=== PATIENT | female | born 1970 | race Caucasian/White ===

== ENCOUNTER → 2016-11-28 | Outpatient (CLI) | payer MEDICAID ==
--- NOTE | 2016-11-28 20:53 | WWHP ---
DATE OF SERVICE: 11/28/2016. CHIEF COMPLAINT: Patient is here for her routine gynecologic exam and mammogram. HPI: This is a 46-year-old G3, P2-0-1-2 with an LMP of 11/07/2016. Her is status post vasectomy. She is complaining of some occasional pressure in the perineal area. She describes it as a bulging type feeling but nothing seems to come through the introitus. She states that occasionally she has had the sensation like there is a small amount of gas coming from the vagina. She denies any stool from the vagina. She states her periods are regular every month. Her last pelvic exam was about 3 years ago. PAST MEDICAL HISTORY: Unremarkable. She currently does not have a primary care physician but thinks she may see Dr. Jones in the future. MEDICATIONS: Vitamin D 3000 units daily. ALLERGIES: No known drug allergies. PAST SURGICAL HISTORY: D&C by myself in the past. Past OB history: One spontaneous followed by 2 pregnancies with vaginal deliveries. Past ELECTRICAL INSTRUMENT [employer] history: She has no history of STDs. SOCIAL HISTORY: She denies tobacco and drug use and has about 1 to 2 alcoholic drinks per year. 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 FAMILY HISTORY: Mother has rectal cancer, maternal aunt had breast cancer in her 80s and daughter was diagnosed with mature onset diabetes at age 11. Her mother also has hypertension, COPD. REVIEW OF SYSTEMS: She has lost about 10 pounds over the last year and a half with diet. She denies respiratory, cardiac, or GI problems. PHYSICAL EXAM: Blood pressure 127/79. Height 5 feet 2 inches. Weight 130 pounds. Temperature 97.4, pulse 99. This a well-developed, well-nourished white female who is alert and oriented x3 in no acute distress. HEENT is within normal limits. NECK: Supple without mass or thyromegaly. CHEST AND LUNGS: Clear to auscultation. HEART: Regular rate and rhythm. Breasts are without mass or discharge. Axillary exam is negative for adenopathy. BACK: Negative for CVA tenderness. ABDOMEN: Soft, nontender, without palpable masses. PELVIC EXAM: Normal external genitalia, cervix is fairly anterior in the vagina consistent with retroverted uterus. The cervix and vagina are normal appearing without lesions. There is no significant prolapse at rest. With Valsalva a grade 1 to 2 rectocele is noted. The uterus is well supported. Bimanual exam, the uterus is retroverted, nongravid size and nontender. There are no palpable adnexal masses or tenderness. Rectovaginal exam confirms a small rectocele. There are no rectal masses or tenderness and stool is negative for occult blood. EXTREMITIES: Nontender. IMPRESSION: 1. A 46-year-old premenopausal female with mild grade 1 to 2 rectocele which is minimally symptomatic. Otherwise unremarkable gynecologic exam. 2. The patient's is status post vasectomy. PLAN: 1. Pap smear was performed. 2. Self-breast examination was discussed. 3. Mammogram will be done today. 4. We had a long discussion regarding the small rectocele and her symptoms. The patient seemed reassured that this is nothing serious. At this time, we will proceed with conservative management. I have recommended that she avoid holding her stool longer than necessary. I have also recommended that she keep enough fiber in her diet to keep regular and avoid large and firm stools. She is instructed to call if she is having greater symptoms or problems. 5. She will return in one year.
--- NOTE | 2016-11-29 10:24 | MM ---
Reason for exam: screening (asymptomatic). Last mammogram was performed 4 years and 2 months ago. Physical Findings: A clinical breast exam by your physician is recommended on an annual basis and results should be correlated with mammographic findings. MG 3D Screening Mammo W/Cad Bilateral CC and MLO view(s) were taken. Prior study comparison: September 16, 2012, bilateral digital screening mammo w/CAD. May 13, 2007, bilateral screening mammogram w/CAD. The breast tissue is heterogeneously dense. This may lower the sensitivity of mammography. There is no discrete abnormality. No significant changes when compared with prior studies. ASSESSMENT: Negative, BI-RAD 1 RECOMMENDATION: Routine screening mammogram of both breasts in 1 year.
== END | disposition home or self-care (01) ==
LOC: WWCWWP 07:59
PROVIDERS: ATTEND Obstetrics & Gynecology
DX: Z12.31 Encounter for screening mammogram for malignant neoplasm of breast (principal)
CPT/HCPCS: 77052; 77063; G0202

== ENCOUNTER → 2018-02-04 | Outpatient (CLI) | payer MEDICAID ==
[2018-02-04 11:31] VITALS: BP 99/66; PULSE 69; TEMP 97.7; BMI 21.2
--- NOTE | 2018-02-04 12:09 | P.HPOB ---
History of Present Illness H&P Date: 02/04/18 Chief Complaint: The patient is here for her routine gynecologic exam and mammogram. This is a 47-year-old with an LMP of 01/22/2018. Her 's status post vasectomy. The patient is without gynecologic complaints. She states her periods are regular every month. They are slightly heavier than in the past but this is not a problem for her. She denies hot flashes. Review of Systems The patient has lost about 14 pounds over the last year. She has done this with diet and exercise. She denies respiratory, cardiac, or G.I. problems. Past Medical History Past Medical History: No Reported History History of Any Multi-Drug Resistant Organisms: None Reported Additional Past Surgical History / Comment(s): d & c. Pap 11/28/16 Past Psychological History: No Psychological Hx Reported Smoking Status: Never smoker Past Alcohol Use History: Rare (4 per year) - Past Family History Daughter(s) Family Medical History: Diabetes Mellitus Mother Family Medical History: Cancer (Rectal CA), COPD, Hypertension Additional Family Medical History / Comment(s): Maternal aunt had breast cancer. Medications and Allergies Home Medications Medication Instructions Recorded Confirmed Type Cholecalciferol (Vitamin D3) 3,000 unit PO 02/04/18 History [Vitamin D3] Multivitamins, Thera [Multivitamin 1 tab PO DAILY 02/04/18 02/04/18 History (formulary)] Allergies Allergy/AdvReac Type Severity Reaction Status Date / Time No Known Allergies Allergy Verified 02/04/18 11:53 Exam - Vital Signs Vital signs: Vital Signs Temp Pulse BP 02/04/18 11:26 97.7 F 69 99/66 Intake and Output 02/03/18 02/04/18 02/04/18 22:59 06:59 14:59 Other: Weight 52.617 kg Patient Weight 02/05/18 06:59 Weight 52.617 kg This is a well-developed well-nourished white female who is alert and oriented times 3 in no acute distress. BMI 21. HEENT: Within normal limits. NECK: Supple without mass or thyromegaly. CHEST AND LUNGS: Clear to auscultation. HEART: Regular rate and rhythm. BREASTS: Are without mass or discharge. AXILLARY EXAM: Negative for adenopathy. BACK: Negative for CVA tenderness. ABDOMEN: Soft, nontender, without palpable masses. PELVIC EXAM: Normal external genitalia. Cervix and vagina appear normal. There is no unusual discharge. There is no evidence of prolapse. The uterus is retroverted, nongravid size and nontender. There are no palpable adnexal masses or tenderness. RECTAL EXAM: negative for mass or tenderness and is negative for occult blood. EXTREMITIES: Nontender. IMPRESSION: 1. 47-year-old female with normal gynecologic exam whose is status post vasectomy. PLAN: 1. Pap smear was deferred since she had a normal one last year. 2. Self breast examination was discussed. 3. Screening mammogram will be done today. 4. Osteoporosis prevention was discussed. 5. He will return in one year.
--- NOTE | 2018-02-05 13:27 | MM ---
Reason for exam: screening (asymptomatic). Last mammogram was performed 1 year and 2 months ago. Physical Findings: A clinical breast exam by your physician is recommended on an annual basis and results should be correlated with mammographic findings. MG 3D Screening Mammo W/Cad Bilateral CC and MLO view(s) were taken. Prior study comparison: November 28, 2016, bilateral MG 3d screening mammo w/cad. September 16, 2012, bilateral digital screening mammo w/CAD. The breast tissue is heterogeneously dense. This may lower the sensitivity of mammography. Breast density increased in the interval. Two nodular asymmetries on the right incompletely disperse on 3D images. ASSESSMENT: Incomplete: need additional imaging evaluation, BI-RAD 0 RECOMMENDATION: Special view mammogram of the right breast. If lesion persists on supplemental views, image directed ultrasound is recommended. [facility] will attempt to contact patient to return for supplemental views and ultrasound if indicated.
== END | disposition home or self-care (01) ==
LOC: WWCWWP 11:15
PROVIDERS: ATTEND Obstetrics & Gynecology
DX: Z12.31 Encounter for screening mammogram for malignant neoplasm of breast (principal)
CPT/HCPCS: 77063; 77067

== ENCOUNTER → 2018-02-06 | Outpatient (CLI) | payer MEDICAID ==
--- NOTE | 2018-02-06 09:39 | MM ---
Reason for exam: additional evaluation requested from abnormal screening. Last mammogram was performed less than 1 month ago. Physical Findings: Nurse did not find any significant physical abnormalities on exam. MG 3D Work Up W/Cad RT CC and MLO view(s) were taken of the right breast. Prior study comparison: February 04, 2018, bilateral MG 3d screening mammo w/cad. November 28, 2016, bilateral MG 3d screening mammo w/cad. The breast tissue is heterogeneously dense. This may lower the sensitivity of mammography. Finding: There is a persistent 6 mm equal density (isodense), indistinct round mass located 2.5 cm from the nipple in the upper outer quadrant, anterior position of the right breast. New finding since November 28, 2016. These results were verbally communicated with the patient and result sheet given to the patient on 02/06/18. ASSESSMENT: Incomplete: need additional imaging evaluation, BI-RAD 0 RECOMMENDATION: Ultrasound of the right breast.
--- NOTE | 2018-02-06 09:40 | USB ---
Reason for exam: additional evaluation requested from abnormal screening. US Breast Workup Limited RT Right breast ultrasound demonstrates a 0.5 x 0.3 x 0.5cm oval, cystic lesion at 12 o'clock and a 0.8 x 0.5 x 0.8cm cystic cluster at 10 o'clock. These results were verbally communicated with the patient and result sheet given to the patient on 02/06/18. ASSESSMENT: Probably benign, BI-RAD 3 RECOMMENDATION: Follow-up diagnostic mammogram and ultrasound of the right breast in 6 months.
== END | disposition home or self-care (01) ==
LOC: RADMAMWWP 06:56
PROVIDERS: ATTEND Obstetrics & Gynecology
DX: R92.8 Other abnormal and inconclusive findings on diagnostic imaging of breast (principal)
CPT/HCPCS: 77065; 76642; G0279

== ENCOUNTER → 2018-07-31 | Outpatient (CLI) | payer MEDICAID ==
--- NOTE | 2018-07-31 13:37 | MM ---
Reason for exam: follow-up at short interval from prior study. Last mammogram was performed 6 months ago. History: Family history of breast cancer in aunt at age 80. Took hormonal contraceptives beginning at age 22. Physical Findings: Nurse did not find any significant physical abnormalities on exam. MG 3D Diag Mammo W/Cad RT CC and MLO view(s) were taken of the right breast. Prior study comparison: February 06, 2018, right breast MG 3d work up w/cad RT. February 04, 2018, bilateral MG 3d screening mammo w/cad. The breast tissue is heterogeneously dense. This may lower the sensitivity of mammography. There is no discrete abnormality. No significant new findings when compared with previous films. These results were verbally communicated with the patient and result sheet given to the patient on 07/31/18. ASSESSMENT: Benign, BI-RAD 2 RECOMMENDATION: Return to routine screening mammogram schedule for both breasts. Back on schedule.
--- NOTE | 2018-07-31 13:39 | USB ---
Reason for exam: follow-up at short interval from prior study. History: Family history of breast cancer in aunt at age 80. Took hormonal contraceptives beginning at age 22. US Breast RT Right complete breast ultrasound includes all four quadrants, the retroareolar region and axilla. Finding demonstrates a 5 x 4 x 3mm mixed lesion at 2 o'clock and a 4 x 6 x 2mm cystic lesion at 8 o'clock. Multiple subcentimeter cystic areas visualized. These results were verbally communicated with the patient and result sheet given to the patient on 07/31/18. ASSESSMENT: Probably benign, BI-RAD 3 RECOMMENDATION: Ultrasound in 6 months. Return to routine screening mammogram schedule for the right breast.
== END | disposition home or self-care (01) ==
LOC: RADMAMWWP 07:21
PROVIDERS: ATTEND Obstetrics & Gynecology
DX: R92.8 Other abnormal and inconclusive findings on diagnostic imaging of breast (principal)
CPT/HCPCS: 77061; 77065

== ENCOUNTER → 2019-02-10 | Outpatient (CLI) | payer MEDICAID ==
[2019-02-10 13:54] VITALS: BP 132/74; PULSE 82; RESP 18; TEMP 97.3; BMI 22.3
--- NOTE | 2019-02-10 14:40 | P.HPOB ---
History of Present Illness H&P Date: 02/10/19 Chief Complaint: The patient is here for her routine gynecologic exam and ma mmogram. This is a 48-year-old with an LMP of 02/02/2019. The patient's is status post vasectomy. The patient is without gynecologic complaints. Her menstrual periods are regular every month. Review of Systems The patient has lost 8 pounds over the last year. She denies respiratory, cardiac, or G.I. problems. She has occasionally notice a slight bulge in the epigastric area when she exercises. She wonders if there is a small hernia. Past Medical History Past Medical History: No Reported History Additional Past Medical History / Comment(s): PAST WAITRESS HISTORY: She has no history of STDs. History of Any Multi-Drug Resistant Organisms: None Reported Additional Past Surgical History / Comment(s): D&C. 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 - Past Family History Daughter(s) Family Medical History: Diabetes Mellitus Additional Family Medical History / Comment(s): Mature onset diabetes at age 11. Mother Family Medical History: Cancer, COPD, Hypertension Additional Family Medical History / Comment(s): Rectal cancer in her 70s. Maternal aunt had breast cancer. Medications and Allergies Home Medications Medication Instructions Recorded Confirmed Type Cholecalciferol (Vitamin D3) 3,000 unit PO DAILY 02/04/18 02/10/19 History [Vitamin D3] Multivitamins, Thera [Multivitamin 1 tab PO DAILY 02/04/18 02/10/19 History (formulary)] Allergies Allergy/AdvReac Type Severity Reaction Status Date / Time No Known Allergies Allergy Verified 02/10/19 13:47 Exam Vital Signs Temp Pulse Resp BP Pulse Ox 02/10/19 13:49 97.3 F L 82 18 132/74 100 Intake and Output 02/09/19 02/10/19 02/10/19 22:59 06:59 14:59 Other: Weight 55.338 kg Height 5'2", weight 122 pounds, BMI 22.3. This is a well-developed well-nourished white female who is alert and oriented times 3 in no acute distress. HEENT: Within normal limits. NECK: Supple without mass or thyromegaly. CHEST AND LUNGS: Clear to auscultation. HEART: Regular rate and rhythm. BREASTS: Are without mass or discharge. AXILLARY EXAM: Negative for adenopathy. BACK: Negative for CVA tenderness. ABDOMEN: Soft, nontender, without palpable masses. PELVIC EXAM: Normal external genitalia. Cervix and vagina appear normal. There is no unusual discharge. There is no evidence of prolapse. The uterus is retroverted, nongravid size and nontender. There are no palpable adnexal masses or tenderness. RECTAL EXAM: negative for mass or tenderness and is negative for occult blood. EXTREMITIES: Nontender. IMPRESSION: 1. 48 year old premenopausal female with normal gynecologic exam. 2. She is is status post vasectomy. 3. Previous abnormal right mammogram. PLAN: 1. Pap smear was performed. 2. Self breast awareness was discussed with the patient. 3. Bilateral diagnostic mammogram with the right breast ultrasound will be done today. 4. Osteoporosis prevention was discussed. I have stressed the importance of adequate calcium, vitamin D and regular exercise. Recommended amounts of calcium and vitamin D were also discussed. 5. Because of her mother's history of rectal cancer, I have recommended her 1st screening colonoscopy. She states she will see Dr. Mann or Dr. Gauthier for this. 6. She will return in one year.
--- NOTE | 2019-02-11 08:14 | MM ---
Reason for exam: additional evaluation requested from prior study. Last mammogram was performed 6 months ago. History: Family history of breast cancer in aunt at age 80. Took hormonal contraceptives beginning at age 22. Physical Findings: Nurse did not find any significant physical abnormalities on exam. MG 3D Diag Mammo W/Cad HUONG Bilateral CC and MLO view(s) were taken. Prior study comparison: July 31, 2018, right breast MG 3d diag mammo w/cad RT. February 06, 2018, right breast MG 3d work up w/cad RT. The breast tissue is extremely dense which could obscure a lesion on mammography. No suspicious abnormality. No significant new findings when compared with previous films. These results were verbally communicated with the patient and result sheet given to the patient on 02/10/19. ASSESSMENT: Negative, BI-RAD 1 RECOMMENDATION: Routine screening mammogram of both breasts in 1 year.
--- NOTE | 2019-02-11 08:17 | USB ---
Reason for exam: follow-up at short interval from prior study. History: Family history of breast cancer in aunt at age 80. Took hormonal contraceptives beginning at age 22. US Breast RT Right complete breast ultrasound includes all four quadrants, the retroareolar region and axilla. Finding demonstrates a 0.4 x 0.4 x 0.2cm cystic lesion at 2 o'clock previously 0.5 x 0.4 x 0.3cm on 07/31/18, a 0.4 x 0.4 x 0.2cm mixed lesion at 8 o'clock previously 0.4 x 0.6 x 0.2cm on 07/31/18, a 0.4 x 0.4 x 0.3cm new cystic cluster at 8 o'clock and a 0.6 x 0.6 x 0.4cm cystic cluster at 10 o'clock previously 0.8 x 0.5 x 0.8cm on 02/06/18. These results were verbally communicated with the patient and result sheet given to the patient on 02/10/19. ASSESSMENT: Probably benign, BI-RAD 3 RECOMMENDATION: Ultrasound of the right breast in 6 months.
== END ==
LOC: WWCWWP 13:37
PROVIDERS: ATTEND Obstetrics & Gynecology
DX: Z12.31 Encounter for screening mammogram for malignant neoplasm of breast (principal); R92.8 Other abnormal and inconclusive findings on diagnostic imaging of breast
CPT/HCPCS: 77062; 77066

== ENCOUNTER → 2019-08-14 | Outpatient (CLI) | payer MEDICAID ==
--- NOTE | 2019-08-14 09:01 | USB ---
Reason for exam: follow-up at short interval from prior study. History: Family history of breast cancer in aunt at age 80. Took hormonal contraceptives beginning at age 22. Physical Findings: Nurse Summary: prominent nodularity, all soft, movable (nurse ts). US Breast Limited RT Right limited breast ultrasound including focal area of concern, retroareolar and axilla demonstrates no cystic or solid lesion seen greater than 0.50cm. These results were verbally communicated with the patient and result sheet given to the patient on 08/14/19. ASSESSMENT: Negative, BI-RAD 1 RECOMMENDATION: Routine screening mammogram of both breasts in 6 months. Back on schedule.
== END | disposition home or self-care (01) ==
LOC: RADUSWWP 06:53
PROVIDERS: ATTEND Obstetrics & Gynecology
DX: R92.8 Other abnormal and inconclusive findings on diagnostic imaging of breast (principal)

== ENCOUNTER → 2021-01-20 | Outpatient (CLI) | payer MEDICAID ==
[2021-01-20 15:15] LABS: Basophils # (A) 0.05 X 10*3/uL (0.00-0.10); Basophils % (A) 1.1 %; Eosinophils # (A) 0.17 X 10*3/uL (0.04-0.35); Eosinophils % (A) 3.8 %; HCT 43.6 % (37.2-46.3); HGB 13.7 g/dL (12.0-15.0); Lymphocytes # (A) 1.27 X 10*3/uL (0.90-5.00); MCH 29.7 pg (27.0-32.0); MCHC 31.4 g/dL (32.0-37.0); MCV 94.4 fL (80.0-97.0); Mean Platelet Volume 11.7 fL (9.5-12.2); Monocytes # (A) 0.45 X 10*3/uL (0.20-1.00); Monocytes % (A) 9.9 %; Neutrophils # (A) 2.58 X 10*3/uL (1.80-7.70); Platelet Count 241 X 10*3/uL (140-440); RBC 4.62 X 10*6/uL (4.10-5.20); RDW 13.4 % (11.5-14.5); WBC 4.53 X 10*3/uL (4.50-10.00)
[2021-01-20 18:22] LABS: African American GFR (CKD) 87.6 (60.0-200.0); Albumin 4.3 g/dL (3.80-4.90); Albumin/Globulin Ratio 1.48 (1.60-3.17); Anion Gap 9.5 mmol/L (4.00-12.00); BUN/Creat Ratio 12.22 Ratio (12.00-20.00); Carbon Dioxide 25.5 mmol/L (21.6-31.8); Chol/HDL Ratio 2.94; Globulin 2.9 g/dL (1.6-3.3); LDL Cholesterol,Calculated 111.2 mg/dL (0.0-131.0); Non-African American GFR(CKD) 75.6 (60.0-200.0); Total Bilirubin 0.5 mg/dL (0.3-1.2); Total Protein 7.2 g/dL (6.2-8.2); VLDL Calculation 16.8 mg/dL (5.00-40.00)
== END | disposition home or self-care (01) ==
LOC: LABWHC1 08:41
PROVIDERS: ATTEND Family Medicine
DX: Z00.00 Encounter for general adult medical examination without abnormal findings (principal); Z13.220 Encounter for screening for lipoid disorders; Z13.29 Encounter for screening for other suspected endocrine disorder
CPT/HCPCS: 36415; 80053; 80061; 84443; 85025

== ENCOUNTER → 2022-03-05 | Outpatient (CLI) | payer BC ==
--- NOTE | 2022-03-06 11:49 | MM ---
Reason for exam: screening (asymptomatic). Last mammogram was performed 3 years and 1 month ago. History: Family history of breast cancer in aunt at age 80. Took hormonal contraceptives beginning at age 22. Physical Findings: A clinical breast exam by your physician is recommended on an annual basis and results should be correlated with mammographic findings. MG 3D Screening Mammo W/Cad Bilateral CC and MLO view(s) were taken. Prior study comparison: February 10, 2019, bilateral MG 3d diag mammo w/cad HUONG. July 31, 2018, right breast MG 3d diag mammo w/cad RT. The breast tissue is heterogeneously dense. This may lower the sensitivity of mammography. There is no discrete abnormality. No significant changes when compared with prior studies. ASSESSMENT: Negative, BI-RAD 1 RECOMMENDATION: Routine screening mammogram of both breasts in 1 year.
== END | disposition home or self-care (01) ==
LOC: RADMAMWWP 06:59
PROVIDERS: ATTEND Family Medicine
DX: Z12.31 Encounter for screening mammogram for malignant neoplasm of breast (principal); Z80.3 Family history of malignant neoplasm of breast
CPT/HCPCS: 77063; 77067

== ENCOUNTER 2023-03-01 06:04 | Day surgery (SDC) | payer BC ==
[~2023-03-01 06:04] MED LIST: LACTATED RINGERS 1,000 ML IV SCH
[2023-03-01 06:35] VITALS: TEMP 97.7
[2023-03-01] MEDS ORDERED: PROPOFOL 10 MG/ML 20 ML VIAL IV ONE (07:03)
[2023-03-01] MEDS ORDERED: LIDOCAINE 2% INJ 20 MG/ML (2 ML VIAL) ONE (07:03)
--- NOTE | 2023-03-01 07:23 | P.PCN ---
Date of Procedure: 03/01/23 Procedure(s) Performed: Brief history: Patient is a pleasant 52-year-old white female scheduled for an upper endoscopy as well as colonoscopy as a part of evaluation of GERD/intermittent dysphagia to solids and screening for colon cancer. She does have family history of colon cancer diagnosed in her mother at age 71. Procedure performed: Esophagogastroduodenoscopy with biopsy Colonoscopy Preoperative diagnosis: GERD/intermittent dysphagia to solids Screening for colon cancer and family history of colon cancer Anesthesia: MAC Procedure: After informed consent was obtained from the patient was brought into the endoscopy unit and IV sedation was administered by anesthesia under continuous monitoring. Initially upper endoscopy was done. The Olympus GF 160 video endoscope was inserted inserted into the mouth and esophagus intubated without any difficulty and was gradually advanced into the stomach and duodenum and carefully examined. The bulb and second part of the duodenum appeared normal. The scope was then withdrawn into the stomach adequately insufflated with air and upon careful examination the antrum had patchy areas of erythema and biopsies were done from this area. Mucosa of the body, cardia and fundus appeared normal. The scope was then withdrawn into the esophagus. The GE junction was located at 40 cm to the incisors. It appeared regular with no erythema erosions or ulcerations. Rest of the esophagus appeared normal. biopsies were done from the distal esophagus. Patient tolerated the procedure well. At this time the patient continued to remain sedation. Initial digital rectal examination was normal. Olympus CF 160 video colonoscope was then inserted into the rectum and gradually advanced to the cecum without any difficulty. Careful examination was performed as the scope was gradually being withdrawn. The prep was excellent. The cecum, ascending colon, transverse colon, descending colon, sigmoid colon and rectum appeared normal. Retroflexion was performed in the rectum and no lesions were noted. Patient tolerated the procedure well. Impression: 1. Upper endoscopy revealed mild antral gastritis but no evidence of esophagitis or esophageal stricture 2. Colonoscopy revealed scattered sigmoid diverticula cyst but no evidence of colorectal neoplasia scattered sigmoid diverticulosis. Recommendations: Findings of this examination were discussed with the patient as well as her family. She was advised to follow with the biopsy results. she will continue with omeprazole and Pepcid as needed. Repeat screening colonoscopy in 5 years because of the family history of colon cancer
[2023-03-01 07:56] VITALS: BP 105/72; PULSE 67; RESP 18
== END 2023-03-01 08:13 | disposition home or self-care (01) ==
LOC: ORWHC2ENDO 06:04
PROVIDERS: ATTEND Internal Medicine Gastroenterology
DX: Z12.11 Encounter for screening for malignant neoplasm of colon (principal); K57.30 Diverticulosis of large intestine without perforation or abscess without bleeding; K21.00 Gastro-esophageal reflux disease with esophagitis, without bleeding; J45.909 Unspecified asthma, uncomplicated; Z79.51 Long term (current) use of inhaled steroids; Z79.899 Other long term (current) drug therapy; Z91.040 Latex allergy status; Z80.0 Family history of malignant neoplasm of digestive organs; Z88.8 Allergy status to other drugs, medicaments and biological substances
CPT/HCPCS: 81025; 88305; 45378; 43239; J2704; J2001

== ENCOUNTER → 2023-04-08 | Outpatient (CLI) | payer BC ==
--- NOTE | 2023-04-10 08:25 | MM ---
Reason for Exam: Screening (asymptomatic). Last mammogram was performed 1 year(s) and 1 month(s) ago. Patient History: Menarche at age 14. First Full-Term at age 31. Perimenopausal. Hormonal Contraceptives, from age 22 until age 26. Maternal aunt had breast cancer, age 80. Risk Values: Manisha 5 year model risk: 1.1%. NCI Lifetime model risk: 9.9%. Prior Study Comparison: 07/31/2018 Right Diagnostic Mammogram, [facility]. 02/10/2019 Bilateral Diagnostic Mammogram, [facility]. 03/05/2022 Bilateral Screening Mammogram, [facility]. Tissue Density: The breast tissue is heterogeneously dense. This may lower the sensitivity of mammography. Findings: Analyzed By CAD. There is no suspicious group of microcalcifications or new suspicious mass in either breast. Overall Assessment: Negative, BI-RAD 1 Management: Screening Mammogram of both breasts in 1 year. A clinical breast exam by your physician is recommended on an annual basis and results should be correlated with mammographic findings. Electronically signed and approved by: Lalo Soliman D.O.
== END | disposition home or self-care (01) ==
LOC: RADMAMWWP 07:24
PROVIDERS: ATTEND Family Medicine
DX: Z12.31 Encounter for screening mammogram for malignant neoplasm of breast (principal); Z80.3 Family history of malignant neoplasm of breast
CPT/HCPCS: 77063; 77067

== ENCOUNTER 2023-06-28 20:24 | Emergency (ER) | payer BC, MEDICAID ==
[2023-06-28 20:28] VITALS: RESP 16; TEMP 97.6
[2023-06-28] MEDS ORDERED: AMOXIC-POT CLAV 875-125MG 1 EACH TAB PO STA (21:23)
[2023-06-28] MEDS ORDERED: DIPH,PERTUS(ACELL)TETVAC-LF 0.5 ML VIAL IM ONE (21:24)
--- NOTE | 2023-06-28 22:05 | ED ---
General Adult HPI - General Chief complaint: Wound/Laceration Stated complaint: Lt hand finger injury Time Seen by Provider: 06/28/23 20:34 Source: patient, RN notes reviewed Mode of arrival: ambulatory Limitations: no limitations - History of Present Illness Initial comments: 53-year-old female with no significant past medical history presents the emergency department from urgent care with a chief complaint of dog bite. Patient reports that she was reaching down when her dog bit her left foot in her finger yesterday at approximately 9:30 PM she washed her car out really well and went to work today. She was seen and evaluated in urgent care who recommended she be evaluated in the ED. She reports that she did receive an x-ray which r evealed a tuft fracture. She denies any fevers, chills, pain at the site, purulent discharge, numbness, tingling in the extremity. Patient weighs she is up-to-date on her tetanus vaccine. She was not prescribed any products at the urgent care. - Related Data Home Medications Medication Instructions Recorded Confirmed Cholecalciferol (Vitamin D3) 3,000 unit PO DAILY 02/04/18 03/01/23 [Vitamin D3] Multivitamins, Thera [Multivitamin 1 tab PO DAILY 02/04/18 03/01/23 (formulary)] Acetaminophen [Tylenol 8 Hour] 650 mg PO Q8H PRN 02/26/23 03/01/23 Albuterol Inhaler [Ventolin Hfa 1 puff INHALATION DAILY PRN 02/26/23 03/01/23 Inhaler] Famotidine 20 - 40 mg PO DAILY PRN 02/26/23 03/01/23 Omeprazole 20 mg PO HS PRN 02/26/23 03/01/23 Previous Rx's Medication Instructions Recorded Amoxic-Pot Clav 875-125Mg 1 tab PO Q12HR #20 tab 06/28/23 [Augmentin 875-125] Allergies Allergy/AdvReac Type Severity Reaction Status Date / Time dicyclomine [From Bentyl] Allergy SKIN Verified 03/01/23 06:26 REDNESS latex Allergy SKIN Verified 03/01/23 06:26 REDNESS Review of Systems ROS Statement: Those systems with pertinent positive or pertinent negative responses have been documented in the HPI. ROS Other: All systems not noted in ROS Statement are negative. 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 History of Any Multi-Drug Resistant Organisms: None Reported Additional Past Surgical History / Comment(s): D&C. Past Anesthesia/Blood Transfusion Reactions: Motion Sickness Past Psychological History: No Psychological Hx Reported Smoking Status: Never smoker Past Alcohol Use History: Rare Past Drug Use History: None Reported - Past Family History Daughter(s) Family Medical History: Diabetes Mellitus Additional Family Medical History / Comment(s): Mature onset diabetes at age 11. Mother Family Medical History: Cancer, COPD, Hypertension Additional Family Medical History / Comment(s): Rectal cancer in her 70s. Maternal aunt had breast cancer. General Exam - General Exam Comments Initial Comments: General: Alert, in no acute distress Head: atraumatic normocephalic. Eyes PERRL, EOMI intact, mucous membranes moist Respiratory: Lungs clear to auscultation bilaterally Cardiovascular: Heart rate regular rate and rhythm Abdominal: Soft without guarding or rebound Extremities: Normal inspection with full range of motion and normal capillary refill, left second digit with 1 cm laceration without active bleeding. No crepitus noted. Full range of motion intact. 2+ radial pulses. Distal neurovascularly intact. It is mildly tender Neuroogic: alert and oriented 3, CN II-XII intact, able to ambulate with steady gait Skin: warm dry and intact with normal color Limitations: no limitations Course Vital Signs 06/28/23 06/28/23 20:25 22:29 Temperature 97.6 F Pulse Rate 83 71 Respiratory 16 16 Rate Blood Pressure 141/84 129/83 O2 Sat by Pulse 100 98 Oximetry Medical Decision Making - Medical Decision Making Was pt. sent in by a medical professional or institution (, PA, LEARNING AND DEVELOPMENT INTERN, urgent care, hospital, or group home...) When possible be specific @ -Urgent care Did you speak to anyone other than the patient for history (EMS, parent, family, police, friend...)? What history was obtained from this source @ -[No] Did you review nursing and triage notes (agree or disagree)? Why? @ -[I reviewed and agree with nursing and triage notes] Were old charts reviewed (outside hosp., previous admission, EMS record, old EKG, old radiological studies, urgent care reports/EKG's, group home records)? Report findings @ -[No old charts were reviewed] Differential Diagnosis (chest pain, altered mental status, abdominal pain women, abdominal pain men, vaginal bleeding, weakness, fever, dyspnea, syncope, headache, dizziness, GI bleed, back pain, seizure, CVA, palpatations, mental health, musculoskeletal)? @ -[not applicable] EKG interpreted by me (3pts min.). @ -[As above] X-rays interpreted by me (1pt min.). @ -[None done] CT interpreted by me (1pt min.). @ -[None done] U/S interpreted by me (1pt. min.). @ -[None done] What testing was considered but not performed or refused? (CT, X-rays, U/S, labs)? Why? @ -XRay's were considered however patient had x-rays performed at urgent care prior to arrival What meds were considered but not given or refused? Why? @ -[None] Did you discuss the management of the patient with other professionals (professionals i.e. , PA, LEARNING AND DEVELOPMENT INTERN, lab, RT, psych nurse, social media assistant, senior energy trader, teacher, animal services officer, game manager)? Give summary @ -[No] Was smoking cessation discussed for >3mins.? @ -[No] Was critical care preformed (if so, how long)? @ -[No] Were there social determinants of health that impacted care today? How? (Homelessness, low income, unemployed, alcoholism, drug addiction, transportation, low edu. Level, literacy, decrease access to med. care, usp, rehab)? @ -[No] Was there de-escalation of care discussed even if they declined (Discuss DNR or withdrawal of care, Hospice)? DNR status @ -[No] What co-morbidities impacted this encounter? (DM, HTN, Smoking, COPD, CAD, Cancer, CVA, ARF, Chemo, Hep., AIDS, mental health diagnosis, sleep apnea, morbid obesity)? @ -[None] Was patient admitted / discharged? Hospital course, mention meds given and route, prescriptions, significant lab abnormalities, going to OR and other pertinent info. @ -Discharged. This is a pleasant 53-year-old female with no significant past medical history presents to the emergency department the chief complaint of dog bite. Patient had a thorough history and physical exam performed on the emergency department. Physical exam reveals a 1 cm laceration to the DIP joint of the second digit on the left hand. There is no active bleeding. Full range of motion. No crepitus noted. It is mildly tender to palpation. Patient was updated on her tetanus vaccine is given Augmentin. With strict return precautions. Patient verbalized understanding all questions were addressed. Discharged in stable condition. Case discussed JACK Fletcher who agrees with plan of care Undiagnosed new problem with uncertain prognosis? @ -[No] Drug Therapy requiring intensive monitoring for toxicity (Heparin, Nitro, Insulin, Cardizem)? @ -[No] Were any procedures done? @ -[No] Diagnosis/symptom? @ -Dog Bite Acute, or Chronic, or Acute on Chronic? @ -Acute Uncomplicated (without systemic symptoms) or Complicated (systemic symptoms)? @ -Uncomplicated Side effects of treatment? @ -[No] Exacerbation, Progression, or Severe Exacerbation? @ -[No] Poses a threat to life or bodily function? How? (Chest pain, [place], [place], pneumonia, PE, COPD, DKA, ARF, appy, cholecystitis, CVA, Diverticulitis, Homicidal, Suicid al, threat to staff... and all critical care pts) @ -Low Likelihood Disposition Clinical Impression: Dog bite Disposition: HOME SELF-CARE Condition: Stable Additional Instructions: Please take antibiotics as prescribed Please return to the nearest emergency department if symptoms worsen or persist Prescriptions: Amoxic-Pot Clav 875-125Mg [Augmentin 875-125] 1 tab PO Q12HR #20 tab Is patient prescribed a controlled substance at d/c from ED?: No Referrals: Ingris Gauthier MD [Primary Care Provider] - 1-2 days Malena Caba DO [Doctor of Osteopathic Medicine] - 1-2 days Time of Disposition: 22:05
[2023-06-28 22:30] VITALS: BP 129/83; PULSE 71
== END 2023-06-28 22:31 | disposition home or self-care (01) ==
LOC: EC 20:24
DX: S61.412A Laceration without foreign body of left hand, initial encounter (principal); Z88.6 Allergy status to analgesic agent; Z91.040 Latex allergy status; W54.0XXA Bitten by dog, initial encounter
CPT/HCPCS: 99282

== ENCOUNTER → 2024-05-21 | Outpatient (CLI) | payer MEDICAID ==
--- NOTE | 2024-05-25 18:16 | MM ---
Reason for Exam: Screening (asymptomatic). Last mammogram was performed 1 year(s) and 1 month(s) ago. Patient History: Menarche at age 14. First Full-Term at age 31. Perimenopausal. Hormonal Contraceptives, from age 22 until age 26. Maternal aunt had breast cancer, age 80. Risk Values: Manisha 5 year model risk: 1.2%. NCI Lifetime model risk: 9.6%. Prior Study Comparison: 02/10/2019 Bilateral Diagnostic Mammogram, [facility]. 03/05/2022 Bilateral Screening Mammogram, [facility]. 04/08/2023 Bilateral MG 3D screening mammo w/cad, [facility]. Tissue Density: The breasts are heterogeneously dense, which may obscure small masses. Findings: Analyzed By CAD. Nodular focal asymmetry posterior upper quadrant left breast for which further evaluation is recommended. Otherwise, no significant change. Overall Assessment: Incomplete: need additional imaging evaluation, BI-RAD 0 Management: Special View Mammogram of the left breast. Diagnostic Breast Ultrasound of the left breast. [facility] will attempt to contact patient to return for supplemental views and ultrasound if indicated. Electronically signed and approved by: Anel Smallwood M.D. Radiologist
== END | disposition home or self-care (01) ==
LOC: RADMAMWWP 15:53
PROVIDERS: ATTEND Family Medicine
DX: Z12.31 Encounter for screening mammogram for malignant neoplasm of breast (principal); Z80.3 Family history of malignant neoplasm of breast
CPT/HCPCS: 77063; 77067

== ENCOUNTER → 2024-05-27 | Outpatient (CLI) | payer MEDICAID ==
--- NOTE | 2024-05-27 10:02 | MM ---
Reason for Exam: Additional evaluation requested from abnormal screening. Last screening mammogram was performed less than 1 month ago. Patient History: Menarche at age 14. First Full-Term at age 31. Perimenopausal. Hormonal Contraceptives, from age 22 until age 26. Maternal aunt had breast cancer, age 80. Risk Values: Manisha 5 year model risk: 1.2%. NCI Lifetime model risk: 9.6%. Prior Study Comparison: 03/05/2022 Bilateral Screening Mammogram, [facility]. 04/08/2023 Bilateral MG 3D screening mammo w/cad, [facility]. 05/21/2024 Bilateral MG 3D screening mammo w/cad, [facility]. Tissue Density: Left: The breasts are heterogeneously dense, which may obscure small masses. Findings: Analyzed By CAD. Persistent 9 mm circumscribed mass approximately 2 to 3:00 position left breast posterior depth persists. This may represent a cyst. Further ultrasound evaluation is recommended. Overall Assessment: Incomplete: need additional imaging evaluation, BI-RAD 0 Management: Diagnostic Breast Ultrasound of the left breast. Electronically signed and approved by: Anel Smallwood M.D. Radiologist
--- NOTE | 2024-05-27 10:40 | USB ---
Reason for Exam: Additional evaluation requested from abnormal screening. Patient History: Menarche at age 14. First Full-Term at age 31. Perimenopausal. Hormonal Contraceptives, from age 22 until age 26. Maternal aunt had breast cancer, age 80. Risk Values: Manisha 5 year model risk: 1.2%. NCI Lifetime model risk: 9.6%. Technique: Method: Targeted. Prior Study Comparison: 03/05/2022 Bilateral Screening Mammogram, [facility]. 04/08/2023 Bilateral MG 3D screening mammo w/cad, [facility]. 05/21/2024 Bilateral MG 3D screening mammo w/cad, [facility]. Findings: The lateral section of the breast of the left breast, the axilla of the left breast and the retroareolar of the left breast were scanned. Targeted ultrasound left breast 2 to 3:00 position including scanning of the subareolar region and axilla. At the 2:00 position, 3 cm from the nipple, there is a 10 x 9 x 6 mm benign cyst, likely mammographic correlate. Six-month follow-up diagnostic left breast mammogram recommended.. Overall Assessment: Probably benign, BI-RAD 3 Management: Diagnostic Mammogram of the left breast in 6 months. A clinical breast exam by your physician is recommended on an annual basis and results should be correlated with mammographic findings. This exam should not preclude additional follow-up of suspicious palpable abnormalities. Results were given to the patient verbally at the time of exam. Electronically signed and approved by: Anel Smallwood M.D. Radiologist
== END | disposition home or self-care (01) ==
LOC: RADMAMWWP 09:25
PROVIDERS: ATTEND Family Medicine
DX: R92.8 Other abnormal and inconclusive findings on diagnostic imaging of breast (principal); R92.332 Mammographic heterogeneous density, left breast; Z80.3 Family history of malignant neoplasm of breast; Z78.0 Asymptomatic menopausal state
CPT/HCPCS: 77061; 77065

== ENCOUNTER → 2024-11-27 | Outpatient (CLI) | payer MEDICAID ==
--- NOTE | 2024-11-27 07:26 | MM ---
Reason for Exam: Follow-up at short interval from prior study. Last screening mammogram was performed 7 month(s) ago. Patient History: Menarche at age 14. First Full-Term at age 31. Perimenopausal. Hormonal Contraceptives, from age 22 until age 26. Maternal aunt had breast cancer, age 80. Risk Values: Manisha 5 year model risk: 1.2%. NCI Lifetime model risk: 9.6%. Prior Study Comparison: 04/08/2023 Bilateral MG 3D screening mammo w/cad, [facility]. 05/21/2024 Bilateral MG 3D screening mammo w/cad, [facility]. 05/27/2024 Left MG 3D work up w/cad , [facility]. Tissue Density: Left: The breasts are heterogeneously dense, which may obscure small masses. Findings: Analyzed By CAD. The pattern is stable. No suspicious interval change No suspicious groups of microcalcifications, spiculated or lobular masses, architectural distortion or other secondary signs of malignancy are mammographically apparent. Overall Assessment: Benign, BI-RAD 2 Management: Screening Mammogram of both breasts in 6 months. A negative mammogram report should not preclude additional follow up of suspicious palpable abnormalities. Patient should continue monthly self breast exam. A clinical breast exam by your physician is recommended on an annual basis and results should be correlated with mammographic findings. Note on Manisha scores and lifetime risk: 1. A Manisha score greater than 3% is considered moderate risk. If this is the case, consider specialist referral to assess eligibility for a risk reducing agent. 2. If overall lifetime risk for the development of breast cancer is 20% or higher, the patient may qualify for future screening with alternating mammogram and breast MRI. [facility], , 11/27/2024 7:22 AM. Electronically signed and approved by: Jeb Darden D.O. Radiologis
== END | disposition home or self-care (01) ==
LOC: RADMAMWWP 06:59
PROVIDERS: ATTEND Family Medicine
DX: R92.8 Other abnormal and inconclusive findings on diagnostic imaging of breast (principal); Z80.3 Family history of malignant neoplasm of breast; R92.332 Mammographic heterogeneous density, left breast
CPT/HCPCS: 77061; 77065

== ENCOUNTER → 2025-06-07 | Outpatient (CLI) | payer MEDICAID ==
--- NOTE | 2025-06-07 07:45 | MM ---
Reason for Exam: Screening (asymptomatic). Last mammogram was performed 1 year(s) and 1 month(s) ago. Patient History: Menarche at age 14. First Full-Term at age 31. Postmenopausal. Patient has history of breast feeding. Hormonal Contraceptives, from age 22 until age 26. Maternal aunt had breast cancer, age 80. Last menstrual period: 01/14/2025 Risk Values: Manisha 5 year model risk: 1.2%. NCI Lifetime model risk: 9.4%. Prior Study Comparison: 02/04/2018 Bilateral Screening Mammogram, [facility]. 02/06/2018 Right Diagnostic Mammogram, [facility]. 07/31/2018 Right Diagnostic Mammogram, [facility]. 02/10/2019 Bilateral Diagnostic Mammogram, [facility]. 03/05/2022 Bilateral Screening Mammogram, [facility]. 04/08/2023 Bilateral MG 3D screening mammo w/cad, [facility]. 05/21/2024 Bilateral MG 3D screening mammo w/cad, [facility]. 05/27/2024 Left MG 3D work up w/cad LT, [facility]. 11/27/2024 Left MG 3D diag mammo w/cad LT, [facility]. Tissue Density: The breasts are heterogeneously dense, which may obscure small masses. Findings: Analyzed By CAD. There is no suspicious group of microcalcifications or new suspicious mass in either breast. Overall Assessment: Negative, BI-RAD 1 Management: Screening Mammogram of both breasts in 1 year. . Patient should continue monthly self-breast exams. A clinical breast exam by your physician is recommended on an annual basis. This exam should not preclude additional follow-up of suspicious palpable abnormalities. Note on Manisha scores and lifetime risk: 1. A Manisha score greater than 3% is considered moderate risk. If this is the case, consider specialist referral to assess eligibility for a risk reducing agent. 2. If overall lifetime risk for the development of breast cancer is 20% or higher, the patient may qualify for future screening with alternating mammogram and breast MRI. [facility], , 06/07/2025 7:42 AM. Electronically signed and approved by: Carter De Jesus M.D. Radiologis
== END | disposition home or self-care (01) ==
LOC: RADMAMWWP 07:00
PROVIDERS: ATTEND Family Medicine
DX: Z12.31 Encounter for screening mammogram for malignant neoplasm of breast (principal); R92.333 Mammographic heterogeneous density, bilateral breasts; Z78.0 Asymptomatic menopausal state; Z80.3 Family history of malignant neoplasm of breast; Z92.0 Personal history of contraception
CPT/HCPCS: 77063; 77067